=== PATIENT | female | born 1930 | race Caucasian/White ===

== ENCOUNTER → 2016-09-28 | Outpatient (CLI) | payer MEDICARE, OTHER ==
[~2016-09-28] MED LIST: ADVAI250I; AMLO2.5T PO; AMLO5TAB2 PO; APIX5TAB PO; CLOP75TA PO; JANU25TA PO; LISI-515 PO; LISI20 PO; METO50 PO; METO50TA PO; METR-1 PO; NITR100C4 PO; NITR1CAP36 PO; SITA25 PO; VESI5TAB PO; ZOFR4TAB3 SL
--- NOTE | 2016-10-02 10:08 | RSPPFT ---
DATE OF PROCEDURE: 09/28/16 COMMENTS: Spirometry shows FVC of 1.2 at 49% of predicted, FEV1 of 0.8 at 52%, FEV1/FVC ratio is decreased. Flow is decreased at FEF 25, FEF 50, FEF 75 and FEF 25-75. There is a mild response after bronchodilator treatment. Lung volumes show residual volume is increased. TLC is normal. Diffusion capacity is decreased. Flow volume loop indicates an obstructive pattern. IMPRESSION: 1. Moderately severe obstructive lung disease. 2. Mild response after bronchodilator treatment. 3. Normal lung volumes 4. Decreased diffusion capacity.
== END ==
LOC: HRSP 12:31
PROVIDERS: ATTEND Internal Medicine Cardiovascular Disease
DX: R06.02 Shortness of breath (principal)
CPT/HCPCS: 94060; 94726; 94729

== ENCOUNTER 2016-11-14 04:49 | Emergency (ER) | payer MEDICARE, OTHER ==
[~2016-11-14] VITALS: Ht 162.6 cm; Wt 62.0 kg
[~2016-11-14 04:49] MED LIST changes: -AMLO5TAB2 PO; -APIX5TAB PO; -LISI-515 PO; -METO50TA PO; -METR-1 PO; -NITR1CAP36 PO; -SITA25 PO; -ZOFR4TAB3 SL
[2016-11-14 04:57] VITALS: BP 126/81; PULSE 91; RESP 16; TEMP 98; O2SAT 98
[2016-11-14] MEDS ORDERED: LISI-515 PO (05:21)
[2016-11-14] MEDS ORDERED: AMLO5TAB2 PO (05:21)
[2016-11-14] MEDS ORDERED: NITR1CAP36 PO (05:21)
[2016-11-14] MEDS ORDERED: METO50TA PO (05:21)
[2016-11-14] MEDS ORDERED: APIX5TAB PO (05:21)
[2016-11-14] MEDS ORDERED: SITA25 PO (05:21)
[2016-11-14 05:22] VITALS: BP 120/73; PULSE 89; RESP 18; TEMP 98; O2SAT 98
[2016-11-14] MEDS ORDERED: SODIUM CHLOR 0.9% 1000 ML INJ 1,000 ML IV SCH ×2 (05:54→06:00)
--- NOTE | 2016-11-14 05:58 | PD ---
HPI Chief Complaint: GI Complaint Time Seen by Provider: 05:54 Travel History International Travel<30 days: No Contact w/Intl Traveler<30days: No Traveled to known affect area: No History of Present Illness HPI The patient is an 85-year-old female that has nausea, vomiting and diarrhea for the past 24 hours. She does have some abdominal discomfort, some in the midline epigastrium and some in the bilateral lower quadrants. She has had both a cholecystectomy and appendectomy in the past. She denies any fever. PFSH Past Medical History Asthma: Yes Cancer: No Cardiovascular Problems: Yes High Cholesterol: Yes Chest Pain: Yes (09/15/11) COPD: Yes Cerebrovascular Accident: Yes (06/2011) Diabetes: Yes Patient Takes Glucophage: No Endocrine: Yes GERD: Yes Genitourinary: No Hypertension: Yes Implanted Vascular Access Dvce: No Musculoskeletal: No Neurologic: Yes Psychiatric: No Reproductive: No Respiratory: Yes Immunizations Current: Yes PNEUMOCCOCAL Vaccine (Year): 2010 ?: Not Menopausal: Yes Past Surgical History Cardiac Surgery: Yes (Had Stent 09/18/11) Gynecologic Surgery: Yes (abdominal hysterectomy) Hysterectomy: Yes Other Surgery: Yes Social History Alcohol Use: No Tobacco Use: No Substance Use: No Allergies-Medications (Allergen,Severity, Reaction): Coded Allergies: Egg Allergy (Verified Allergy, Severe, DIARRHEA VOMITING, 09/27/12) Integrilin (Verified Allergy, Severe, 09/27/12) Reported Meds & Prescriptions Reported Meds & Active Scripts Active Reported Eliquis (Apixaban) 5 Mg Tab 5 Mg PO BID Nitrofurantoin Macrocrystal 100 Mg Cap 100 Mg PO QID Metoprolol Tartrate 50 Mg Tab 50 Mg PO DAILY Amlodipine (Amlodipine Besylate) 5 Mg Tab 5 Mg PO DAILY Lisinopril 20 Mg Tab 20 Mg PO DAILY Januvia (Sitagliptin Phosphate) 25 Mg Tab 25 Mg PO DAILY Review of Systems Except as stated in HPI: all other systems reviewed are Neg Physical Exam Narrative GENERAL: The patient appears moderately dehydrated, alert, oriented 3 and slight apparent distress with her abdominal discomfort. Her vital signs are normal. SKIN: Focused skin assessment warm/dry. HEAD: Atraumatic. Normocephalic. EYES: Pupils equal and round. No scleral icterus. No injection or drainage. ENT: No nasal bleeding or discharge. Mucous membranes pink and moist. NECK: Trachea midline. No JVD. CARDIOVASCULAR: Regular rate and rhythm. No murmur appreciated. RESPIRATORY: No accessory muscle use. Clear to auscultation. Breath sounds equal bilaterally. GASTROINTESTINAL: Abdomen soft, with tenderness in the midline epigastrium and bilateral lower quadrants to direct palpation, nondistended. Hepatic and splenic margins not palpable. No guarding or rebound is present. MUSCULOSKELETAL: No obvious deformities. No clubbing. No cyanosis. No edema. NEUROLOGICAL: Awake and alert. No obvious cranial nerve deficits. Motor grossly within normal limits. Normal speech. PSYCHIATRIC: Appropriate mood and affect; insight and judgment normal. Data Data Last Documented VS Vital Signs Date Time Temp Pulse Resp B/P Pulse Ox O2 Delivery O2 Flow Rate FiO2 11/14/16 05:22 98.0 89 18 120/73 98 Orders Complete Blood Count With Diff (11/14/16 05:54) Comprehensive Metabolic Panel (11/14/16 05:54) Urinalysis - C+S If Indicated (11/14/16 05:54) Iv Access Insert/Monitor (11/14/16 05:54) Ecg Monitoring (11/14/16 05:54) Oximetry (11/14/16 05:54) Ondansetron Inj (Zofran Inj) (11/14/16 06:00) Pantoprazole Inj (Protonix Inj) (11/14/16 06:00) Sodium Chlor 0.9% 1000 Ml Inj (Ns 1000 M (11/14/16 05:54) Sodium Chloride 0.9% Flush (Ns Flush) (11/14/16 06:00) Sodium Chlor 0.9% 1000 Ml Inj (Ns 1000 M (11/14/16 06:00) MDM Medical Decision Making Medical Screen Exam Complete: Yes Emergency Medical Condition: Yes Medical Record Reviewed: Yes Differential Diagnosis Viral gastroenteritis, colitis, electrolyte disorder, dehydration, anemia, hypo- /hyperglycemia, pancreatitis Narrative Course It is now 0705 and the patient is transferred to Dr. Philip. Mitch Beth MD Nov 14, 2016 05:58
[2016-11-14] MEDS ORDERED: PANTOPRAZOLE SODIUM 40 MG VIAL IVP ONE (06:00)
[2016-11-14] MEDS ORDERED: SODIUM CHLORIDE 0.9% FLUSH 10 ML FLUSH IV FLUSH PRN (06:00)
[2016-11-14] MEDS ORDERED: ONDANSETRON HCL 4 MG/2 ML VIAL IVP ONE (06:00)
[2016-11-14 07:03] LABS: AUTOMATED NEUTROPHIL # 10.9 TH/MM3 (1.8-7.7); BASOPHIL # 0.1 TH/MM3 (0-0.2); BASOPHIL % 0.6 % (0.0-2.0); EOSINOPHIL # 0.1 TH/MM3 (0-0.4); EOSINOPHIL % 1.1 % (0.0-4.0); HEMATOCRIT 49.1 % (35.0-46.0); LYMPH % 9.6 % (9.0-44.0); LYMPHOCYTE # 1.3 TH/MM3 (1.0-4.8); MEAN CORPUSCULAR HEMOGLOBIN 30.7 PG (27.0-34.0); MEAN CORPUSCULAR HGB CONC 32.3 % (32.0-36.0); MONO % 7.3 % (0.0-8.0); NEUT % 81.4 % (16.0-70.0); PLATELET COUNT 182 TH/MM3 (150-450); RED BLOOD COUNT 5.17 MIL/MM3 (4.00-5.30); RED CELL DISTRIBUTION WIDTH 12.7 % (11.6-17.2); WHITE BLOOD COUNT 13.4 TH/MM3 (4.0-11.0)
[2016-11-14 07:13] LABS: HEMO FLAGS DIFF FINAL
[2016-11-14 07:43] LABS: CHLORIDE 104 MEQ/L (98-107); POTASSIUM 3.3 MEQ/L (3.5-5.1); SODIUM (NA) 142 MEQ/L (136-145)
[2016-11-14 07:46] LABS: ANION GAP 8 MEQ/L (5-15); BICARBONATE 30.3 MEQ/L (21.0-32.0); BLOOD UREA NITROGEN 9 MG/DL (7-18)
[2016-11-14 07:49] LABS: ALT (GPT) 17 U/L (10-53); AST (GOT) 15 U/L (15-37); GLOMERULAR FILTRATION RATE 80 ML/MIN (>89)
[2016-11-14 07:51] LABS: TOTAL BILIRUBIN ADULT 1.6 MG/DL (0.2-1.0)
[2016-11-14 07:52] LABS: ALKALINE PHOSPHATASE 67 U/L (45-117)
--- NOTE | 2016-11-14 08:07 | PD ---
Physical Exam Narrative GENERAL: Well-nourished, well-developed patient. SKIN: Warm and dry. HEAD: Normocephalic and atraumatic. EYES: No injection or drainage. ENT: No nasal drainage noted. NECK: Supple, trachea midline. CARDIOVASCULAR: Regular rate and rhythm RESPIRATORY: No increased effort. No accessory muscle use. GASTROINTESTINAL: Abdomen soft, tender left lower quadrant, nondistended. No rebound or guarding NEUROLOGICAL: Awake. Moves all extremities. Normal speech. Data Data Last Documented VS Vital Signs Date Time Temp Pulse Resp B/P Pulse Ox O2 Delivery O2 Flow Rate FiO2 11/14/16 08:43 94 18 116/72 97 Room Air 11/14/16 05:22 98.0 Orders Complete Blood Count With Diff (11/14/16 05:54) Comprehensive Metabolic Panel (11/14/16 05:54) Urinalysis - C+S If Indicated (11/14/16 05:54) Iv Access Insert/Monitor (11/14/16 05:54) Ecg Monitoring (11/14/16 05:54) Oximetry (11/14/16 05:54) Ondansetron Inj (Zofran Inj) (11/14/16 06:00) Pantoprazole Inj (Protonix Inj) (11/14/16 06:00) Sodium Chlor 0.9% 1000 Ml Inj (Ns 1000 M (11/14/16 05:54) Sodium Chloride 0.9% Flush (Ns Flush) (11/14/16 06:00) Sodium Chlor 0.9% 1000 Ml Inj (Ns 1000 M (11/14/16 06:00) Ct Abd/Pel W Iv Contrast(Rout) (11/14/16 ) Act Partial Throm Time (Ptt) (11/14/16 08:04) Prothrombin Time / Inr (Pt) (11/14/16 08:04) Iohexol 350 Inj (Omnipaque 350 Inj) (11/14/16 08:30) Ondansetron Inj (Zofran Inj) (11/14/16 08:45) Labs Laboratory Tests Test 11/14/16 11/14/16 11/14/16 06:30 08:13 08:36 White Blood Count 13.4 TH/MM3 Red Blood Count 5.17 MIL/MM3 Hemoglobin 15.8 GM/DL Hematocrit 49.1 % Mean Corpuscular Volume 95.0 FL Mean Corpuscular Hemoglobin 30.7 PG Mean Corpuscular Hemoglobin 32.3 % Concent Red Cell Distribution Width 12.7 % Platelet Count 182 TH/MM3 Mean Platelet Volume 8.8 FL Neutrophils (%) (Auto) 81.4 % Lymphocytes (%) (Auto) 9.6 % Monocytes (%) (Auto) 7.3 % Eosinophils (%) (Auto) 1.1 % Basophils (%) (Auto) 0.6 % Neutrophils # (Auto) 10.9 TH/MM3 Lymphocytes # (Auto) 1.3 TH/MM3 Monocytes # (Auto) 1.0 TH/MM3 Eosinophils # (Auto) 0.1 TH/MM3 Basophils # (Auto) 0.1 TH/MM3 CBC Comment DIFF FINAL Differential Comment Sodium Level 142 MEQ/L Potassium Level 3.3 MEQ/L Chloride Level 104 MEQ/L Carbon Dioxide Level 30.3 MEQ/L Anion Gap 8 MEQ/L Blood Urea Nitrogen 9 MG/DL Creatinine 0.70 MG/DL Estimat Glomerular Filtration 80 ML/MIN Rate Random Glucose 148 MG/DL Calcium Level 9.1 MG/DL Total Bilirubin 1.6 MG/DL Aspartate Amino Transf 15 U/L (AST/SGOT) Alanine Aminotransferase 17 U/L (ALT/SGPT) Alkaline Phosphatase 67 U/L Total Protein 7.3 GM/DL Albumin 3.8 GM/DL Urine Collection Type CLEAN CATCH Urine Color YELLOW Urine Turbidity CLEAR Urine pH 5.5 Urine Specific Marshall 1.008 Urine Protein TRACE mg/dL Urine Glucose (UA) NEG mg/dL Urine Ketones NEG mg/dL Urine Occult Blood TRACE Urine Nitrite NEG Urine Bilirubin NEG Urine Leukocyte Esterase TRACE Urine RBC 0-3 /hpf Urine WBC 3-5 /hpf Urine Squamous Epithelial 6-8 /hpf Cells Urine Bacteria FEW /hpf Microscopic Urinalysis Comment CULT NOT INDICATED Prothrombin Time 13.1 SEC Prothromb Time International 1.2 RATIO Ratio Activated Partial 30.1 SEC Thromboplast Time [facility] Supervised Visit with ANTONINA: No Interpretation(s) CBC & BMP Diagram 11/14/16 06:30 ct with colitis, renal cyst-given copy of CT for follow-up Narrative Course Signed over to me to follow blood work and reevaluate. Patient is tender in left lower quadrant and given this, age, blood thinner medication will add on CT scan abdominal pelvis to rule out concurrent process. Patient daughter agree to this. No emesis here ed workup with colitis, Patient denies any new complaints and states that they are feeling better. Patient happy with care, all questions answered. Patient knows that follow up is incumbent on them and to return to the emergency room immediately if new or worsening symptoms develop. Patient given strict return precautions, vitals reviewed and are normal, agrees to further workup as an outpatient. Diagnosis Primary Impression: Colitis Additional Impression: Vomiting and diarrhea Patient Instructions: General Instructions Additional Instruction: return as needed, keep hydrated, tylenol as needed Med/Other Pt SpecificInfo: Prescription(s) given Scripts Ondansetron Odt (Zofran Odt)4 Mg Tab4 Mg SL Q6HR PRN (Nausea/Vomiting) #10 TAB Prov:Penny Morgan MD 11/14/16 Metronidazole (Flagyl)500 Mg Stj211 Mg PO BID 7 Days Prov:Penny Morgan MD 11/14/16 Disposition: 01 DISCHARGE HOME Condition: Stable Penny Morgan MD Nov 14, 2016 08:07
[2016-11-14 08:18] LABS: BLOOD, URINE TRACE (NEG); GLUCOSE,URINE NEG (NEG); KETONE, URINE NEG (NEG); NITRITE,URINE NEG (NEG); PH, URINE 5.5 (5.0-8.5)
[2016-11-14 08:20] LABS: METHOD OF COLLECTION CLEAN CATCH; URINE COLOR YELLOW (YELLW/STRAW)
[2016-11-14 08:26] LABS: RBC, URINE 0-3 /hpf (0-3)
[2016-11-14 08:27] LABS: COMMENT (UR) CULT NOT INDICATED; CULTURE IF INDICATED CULT NOT INDICATED
[2016-11-14 08:28] LABS: BACTERIA, URINE FEW /hpf
[2016-11-14] MEDS ORDERED: IOHEXOL 350 MG/ML 10 ML VIAL (for RAD DIAG) IV ONE (08:30)
[2016-11-14 08:43] VITALS: BP 116/72; PULSE 94; RESP 18; O2SAT 97
[2016-11-14] MEDS ORDERED: ONDANSETRON HCL 4 MG/2 ML VIAL IV PUSH ONE (08:45)
[2016-11-14 09:00] LABS: APTT (PATIENT) 30.1 SEC (24.3-30.1); INTERNATIONAL NORMALIZED RATIO 1.2 RATIO; PROTHROMBIN TIME - PATIENT 13.1 SEC (9.8-11.6)
--- NOTE | 2016-11-14 09:07 | RADHPO ---
EXAM DATE/TIME: 11/14/2016 08:17 [facility] COMPARISON: CT ABDOMEN & PELVIS W CONTRAST, September 27, 2012, 21:52. INDICATIONS : Lower abdominal pain with nausea and vomiting. IV CONTRAST: 95 cc Omnipaque 350 (iohexol) IV ORAL CONTRAST: No oral contrast ingested. RADIATION DOSE: 7.68 CTDIvol (mGy) MEDICAL HISTORY : Hypertension. Chronic obstructive pulmonary disease. Gastroesophageal reflux disease. Diabetes. SURGICAL HISTORY : Hysterectomy. ENCOUNTER: Initial ACUITY: 1 day PAIN SCALE: 4/10 LOCATION: Bilateral lower quadrant TECHNIQUE: Volumetric scanning of the abdomen and pelvis was performed. Using automated exposure control and ad justment of the mA and/or kV according to patient size, radiation dose was kept as low as reasonably achievable to obtain optimal diagnostic quality images. FINDINGS: Lung bases are clear. The liver is free of focal defects. Spleen and pancreas are unremarkable. La rge cyst is seen in the right kidney measuring 4.7 cm. There is bowel wall thickening throughout the entire colon extending into the rectum consistent with colitis. There is very minimal mesenteric induration associated with this. Diverticula are seen in the sigmoi d colon without diverticulitis. Pelvic contents show only trace fluid in the abdomen. CONCLUSION: Findings would be consistent with a colitis. There is trace fluid. There is no free air. Stable right renal cyst. Arnaud Michelle MD FACR on November 14, 2016 at 8:59 Board Certified Radiologist. This report was verified electronically.
[2016-11-14] MEDS ORDERED: METR-1 PO (09:10)
[2016-11-14] MEDS ORDERED: ZOFR4TAB3 SL (09:10)
== END 2016-11-14 09:41 | disposition home or self-care (01) ==
LOC: PHED 04:49
DX: K52.9 Noninfective gastroenteritis and colitis, unspecified (principal); R10.32 Left lower quadrant pain; J45.909 Unspecified asthma, uncomplicated; E78.00 Pure hypercholesterolemia, unspecified; J44.9 Chronic obstructive pulmonary disease, unspecified; E11.9 Type 2 diabetes mellitus without complications; K21.9 Gastro-esophageal reflux disease without esophagitis; I10 Essential (primary) hypertension; Z88.8 Allergy status to other drugs, medicaments and biological substances
CPT/HCPCS: 74177; 80053; 81001; 85025; 85610; 85730; 96361; 96374; 96375; 96376; 99284; C9113; J2405; J7030; Q9967